=== PATIENT | female | born 1955 | race African-American/Black ===

== ENCOUNTER 2018-12-18 07:58 | Emergency (ER) | payer MEDICAID ==
[~2018-12-18] VITALS: Ht 162.6 cm; Wt 72.0 kg
[2018-12-18] MEDS ORDERED: ACETAMINOPHEN 500MG TABLET PO ONE (10:30)
[2018-12-18 10:56] VITALS: BP 129/78
== END 2018-12-18 10:58 | disposition home or self-care (01) ==
LOC: ER 07:58
DX: J06.9 Acute upper respiratory infection, unspecified (principal); R07.89 Other chest pain
CPT/HCPCS: 71045; 99283

== ENCOUNTER 2019-04-08 02:38 | Emergency (ER) | payer SELFPAY ==
[~2019-04-08] VITALS: Ht 167.6 cm; Wt 59.0 kg
[2019-04-08 04:07] LABS: CLARITY URINE CLEAR (CLEAR); COLOR URINE YELLOW (YELLOW); KETONES URINE NEGATIVE (NEGATIVE); LEUKOCYTE ESTERASE URINE 2+ (NEGATIVE); NITRITE URINE NEGATIVE (NEGATIVE); OCCULT BLOOD URINE NEGATIVE (NEGATIVE); PROTEIN URINE NEGATIVE (NEGATIVE); SPECIFIC GRAVITY URINE 1.017 (1.005-1.030); UROBILINOGEN URINE 0.2 E.U./dL (0.2-1.0)
[2019-04-08] MEDS ORDERED: BACITRACIN ZINC OINT UDPKT TOP ONE (04:15)
[2019-04-08] MEDS ORDERED: IBUPROFEN 600MG TABLET PO ONE (04:15)
[2019-04-08 06:18] VITALS: BP 138/83
== END 2019-04-08 06:24 | disposition home or self-care (01) ==
LOC: ER 02:38
DX: S60.811A Abrasion of right wrist, initial encounter (principal); R07.81 Pleurodynia; V43.12XA Car passenger injured in collision with other type car in nontraffic accident, initial encounter; Y93.89 Activity, other specified; Y92.89 Other specified places as the place of occurrence of the external cause; Y99.8 Other external cause status
CPT/HCPCS: 71101; 81003; 99284; Z7610

== ENCOUNTER 2025-05-23 04:45 | Emergency (ER) | payer SELFPAY ==
[~2025-05-23] VITALS: Ht 165.1 cm; Wt 52.0 kg
[2025-05-23 04:53] VITALS: O2SAT 96
[2025-05-23] MEDS ORDERED: MORPHINE SULFATE 4 MG/ML INJ (FOR IV/IM USE) IV ONE (06:00)
[2025-05-23 06:51] LABS: BASOPHILS % 0.7 % (0.0-2.0); EOSINOPHILS % 0.2 % (0.0-5.0); HEMATOCRIT. 38.5 % (36.0-48.0); HEMOGLOBIN. 12.7 g/dL (12.0-16.0); LYMPHOCYTES % 35.9 % (20.0-50.0); MEAN PLATELET VOLUME 10.1 fl (7.4-10.4); MONOCYTES % 8.5 % (2.0-8.0); NEUTROPHILS % 54.7 % (40.0-76.0); PLATELET 263 x1000/uL (130-400); RED BLOOD CELL COUNT 4.47 mill/uL (4.2-5.4); RED CELL DISTRIBUTION WIDTH 14.1 % (11.6-14.6)
[2025-05-23] MEDS: ACETAMINOPHEN 1000MG/100ML 100 ML IV ONE (06:52)
[2025-05-23] MEDS: SODIUM CHLORIDE 0.9% 1,000 ML IV ONE (06:53)
[2025-05-23] MEDS: ONDANSETRON HCL 4MG/2ML INJ IV ONE (06:53)
[2025-05-23 07:06] LABS: CREATININE 0.9 mg/dL (0.6-1.0); TROPONIN I HIGH SENSITIVITY < 4 ng/L (3.0-34); UREA NITROGEN BLOOD 12 mg/dL (9-23)
[2025-05-23 07:08] LABS: ASPARTATE AMINOTRANSFERASE 18 IU/L (<34); BILIRUBIN DIRECT 0.2 mg/dL (<=3.0); BILIRUBIN TOTAL 0.5 mg/dL (0.1-1.0); PROTEIN TOTAL 6.9 g/dL (6.0-8.3)
[2025-05-23] MEDS ORDERED: ONDA4TAB50 PO (07:42)
[2025-05-23] MEDS ORDERED: TOPUD PO (07:42)
[2025-05-23 08:07] VITALS: BP 149/73; PULSE 66; RESP 16; TEMP 36.8; O2SAT 97
== END 2025-05-23 08:09 | disposition home or self-care (01) ==
LOC: ER 04:45 → CANBEDREQ 07:53 → ER 08:09
DX: R10.84 Generalized abdominal pain (principal); F17.200 Nicotine dependence, unspecified, uncomplicated; F14.90 Cocaine use, unspecified, uncomplicated
CPT/HCPCS: 99285; 74176; 96365; 96375; 80076; 80048; 83690; 85025; 84484; 36415; J2405; J7030; J0131